=== PATIENT | female | born 1970 ===

== ENCOUNTER 2024-11-18 12:36 | Inpatient (IN) | payer OTHER ==
[~2024-11-18] VITALS: Ht 157.5 cm; Wt 69.0 kg
[2024-11-18 13:43] LABS: BASOPHILS ABSOLUTE AUTO 0.07 K/mm3 (0.00-0.23); BASOPHILS PERCENT AUTO 1 % (0-2); EOSINOPHILS ABSOLUTE AUTO 0.05 K/mm3 (0.00-0.68); EOSINOPHILS PERCENT AUTO 0 % (0-6); Hematocrit 42.3 % (33.0-51.0); Hemoglobin 14.4 g/dL (11.5-16.0); IMMATURE GRAN ABSOLUTE AUTO 0.04 K/mm3 (0.00-0.10); IMMATURE GRAN PERCENT AUTO 0 % (0-1); LYMPHOCYTES ABSOLUTE AUTO 2.81 K/mm3 (0.84-5.20); LYMPHOCYTES PERCENT AUTO 24 % (21-46); MONOCYTES ABSOLUTE AUTO 1.27 K/mm3 (0.16-1.47); MONOCYTES PERCENT AUTO 11 % (4-13); Mean Corpuscular HGB 29.9 pg (26.0-34.0); Mean Corpuscular Volume 88 fL (80-100); Mean Platelet Volume 10.2 fL (9.1-12.4); NEUTROPHILS ABSOLUTE AUTO 7.54 K/mm3 (1.96-9.15); NEUTROPHILS PERCENT AUTO 64 % (41-73); Platelet Count 320 K/mm3 (150-400); RDW Coefficient Variation 11.7 % (11.7-14.2); RDW Standard Deviation 37.6 fL (35.1-46.3); Red Blood Cell Count 4.82 M/mm3 (3.80-5.20); White Blood Cell Count 11.78 K/mm3 (4.00-11.30)
[2024-11-18 14:05] LABS: Albumin, Blood 3.8 g/dL (3.4-5.0); Albumin/Globulin Ratio 0.9 (0.8-1.8); Bilirubin, Total 0.5 mg/dL (0.1-1.0); Calcium, Blood 9.2 mg/dL (8.5-10.1); Creatinine, Blood 0.82 mg/dL (0.40-1.00); Globulin, Blood 4.4 g/dL (2.2-4.0); Total Protein, Blood 8.2 g/dL (6.4-8.2)
[2024-11-18] MEDS ORDERED: NS 1,000 ML IV SCH ×2 (14:25→18:05)
[2024-11-18 16:12] LABS: Source, Urine Clean Catch
[2024-11-18 16:35] LABS: Bilirubin, Urine Neg (Neg); Blood, Urine Neg (Neg); Glucose Qualitative, Urine 3+ (Neg); Ketones, Urine 1+ (Neg); Leukocyte Esterase, Urine Neg (Neg); Nitrite, Urine Neg (Neg); Protein, Urine 2+ (Neg); Urobilinogen, Urine NORM (Normal)
[2024-11-18] MEDS ORDERED: Ampicillin Sod/Sulbactam Sod 1.5 GM in NS 100 ML IV ONE (16:40)
[2024-11-18 17:02] LABS: Appearance, Urine Hazy (Clear); Color, Urine Pale Yellow (P-Yellow)
[2024-11-18 17:03] LABS: Bacteria Mod /hpf; Mucus Light (0-Heavy); Red Blood Cells, Urine 0-2 /hpf (0-2); Squamous Epithelial Cells Few /hpf (Few); White Blood Cells, Urine 0-2 /hpf (0-5)
[2024-11-18] MEDS ORDERED: Ondansetron HCl 2 MG / ML 2ML Vial IV PRN (18:05)
[2024-11-18] MEDS ORDERED: OxyCODONE 5 mg/Acetamin 325 mg TABLET PO PRN (18:15)
[2024-11-18] MEDS ORDERED: Albuterol 2.5 MG/3 ML VIAL INH PRN (18:15)
[2024-11-18 18:57] VITALS: BP 113/68
--- NOTE | 2024-11-18 19:53 | NUR ---
ADMIT KANIKA MARTIN. 54 YR OLD FEMALE ADMITTED FROM THE ED WITH DX OF DIVERTICULITIS. ALERT AND ORIENTED. UP AD MILA. ON CL LIQUID DIET. IN STRUCTED TO NOTIFY NURSE IF HAD BM IN CASE OF POSSIBLE BLOOD IN THE STOOL, VOICED AGREEMENT AND UNDERSTANDING. ORIENTED TO USE OF CALL LIGHT. RAILS UP X 2 FOR SAFETY. WILL CONTINUE TO MONITOR
[2024-11-18] MEDS ORDERED: FLU VACC TS2024-25(6MOS UP)/PF 45 MCG/0.5 ML SYRINGE IM ONE (21:00)
[2024-11-19] MEDS ORDERED: Piperacillin/Tazobactam Sod 3.375 GM in NS 100 ML IV SCH
--- NOTE | 2024-11-19 03:08 | NUR ---
LIPCOAT SPRAYER SUMMARY WAS ADMITTED TO FLOOR EARLIER IN THE SHIFT WITH DX OF ACUTE DIVERTICULITIS. ALERT AND ORIENTED. VSS. IVF OF NS INFUSING AND RECEIVING ANTIBIOTICS - SEE MAR FOR DETAILS. UP AD MILA. ABLE TO REPOSITION SELF IN BED WITHOUT ASSIST. HAS BEEN RESTING QUIETLY WITH FEW INTERRUPTIONS. VOICED UNDERSTANDING TO LET STAFF KNOW IF HAVE BM OR EMESIS TO BE ASSESSED BY STAFF. CALL LIGHT IN REACH, RAILS UP X 2 AND BED IN LOW PSOITION FOR SAFEATY. WILL CONT TO [facility]IOR.
[2024-11-19 04:10] VITALS: BP 109/71
[2024-11-19 04:53] LABS: Hematocrit 35.7 % (33.0-51.0); Hemoglobin 12.2 g/dL (11.5-16.0); Mean Corpuscular HGB 30.2 pg (26.0-34.0); Mean Corpuscular HGB Conc 34.2 g/dL (31.5-36.5); Mean Corpuscular Volume 88 fL (80-100); Mean Platelet Volume 10.3 fL (9.1-12.4); Platelet Count 267 K/mm3 (150-400); RDW Coefficient Variation 11.9 % (11.7-14.2); Red Blood Cell Count 4.04 M/mm3 (3.80-5.20)
[2024-11-19 05:09] LABS: International Normalized Ratio 1.02; Prothrombin Time Results 10.9 Sec (9.7-11.5)
[2024-11-19 05:18] LABS: Bun/Creatinine Ratio 14.2 (12.0-20.0); Calcium, Blood 8.6 mg/dL (8.5-10.1); Creatinine, Blood 0.71 mg/dL (0.40-1.00); Magnesium, Blood 2.3 mg/dL (1.6-2.4); Potassium, Blood 3.8 mmol/L (3.5-5.5)
[2024-11-19 08:04] VITALS: BP 112/61
[2024-11-19] MEDS ORDERED: AMOCLA875 PO (10:07)
== END 2024-11-19 10:26 | disposition home or self-care (01) | DRG 392 ==
LOC: ER 12:36 → MEDS 18:02
PROVIDERS: Nurse Practitioner Acute Care; Student in an Organized Health Care Education/Training Program; ADMIT Internal Medicine
DX: K57.92 Diverticulitis of intestine, part unspecified, without perforation or abscess without bleeding (principal); R73.9 Hyperglycemia, unspecified; D72.829 Elevated white blood cell count, unspecified; Z88.2 Allergy status to sulfonamides; Z79.899 Other long term (current) drug therapy; Z28.21 Immunization not carried out because of patient refusal
CPT/HCPCS: 36415; 74177; 80048; 80053; 81001; 83036; 83690; 83735; 84702; 85025; 85027; 85610; 87086; 96361; 96365-59; 99285-25; J0295; J2543; J7030; Q9967